=== PATIENT | male | born 1965 | race Caucasian/White ===

== ENCOUNTER 2016-10-22 17:21 | Emergency (ER) | payer BC ==
[2016-10-22 17:34] VITALS: BP 130/91
[2016-10-22] MEDS ORDERED: Lidocaine 1% with EPINEPHrine 1:100,000 20 ML MDV INJECT ONE (18:04)
[2016-10-22] MEDS ORDERED: Diphtheria,Pertussis(Acell),Tetanus Vaccine 0.5 ML SDV inactive IM ONE (18:04)
--- NOTE | 2016-10-22 18:09 | EDM.PDOC ---
ED HPI GENERAL MEDICAL PROBLEM - General Chief Complaint: Laceration Stated Complaint: NOSE LAC Time Seen by Provider: 10/22/16 17:55 Source of Information: Reports: Patient History Limitations: Reports: No Limitations - History of Present Illness INITIAL COMMENTS - FREE TEXT/NARRATIVE: The patient is a 51-year-old male who presents to the ED complaining of laceration to the bridge of his nose. 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 Patient was not knocked out but felt woozy afterwards. States it took approximately half hour to get his bearings back. Patient went back to work for the whole day. He had no issues. States his tetanus is not up-to-date. Denies any loss conscious, nausea/vomiting, dizziness, vision changes, shortness of breath, chest pain, numbness or tingling, or any additional complaints. PMH: anxiety and takes zoloft. 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 (see below) (none stated) Nose Pain Score (Numeric/FACES): 4 - Related Data Allergies Allergy/AdvReac Type Severity Reaction Status Date / Time No Known Allergies Allergy Verified 10/22/16 17:27 Home Meds: Home Meds Cephalexin [Keflex] 500 mg PO TID #21 capsule 10/22/16 [Rx] Sertraline HCl [Zoloft] 150 mg PO DAILY 10/22/16 [History] Past Medical History Psychiatric History: Reports: Anxiety Social & Family History - Tobacco Use Smoking Status *Q: Never Smoker - Recreational Drug Use Recreational Drug Use: No ED ROS GENERAL - Review of Systems Review Of Systems: ROS reveals no pertinent complaints other than HPI. ED EXAM, SKIN/RASH Exam: See Below Exam Limited By: No Limitations General Appearance: Alert, WD/WN, No Apparent Distress Eye Exam: Bilateral Eye: PERRL Ears: Hearing Grossly Normal Nose: Normal Inspection Throat/Mouth: Normal Voice, No Airway Compromise Head: Other (1.5 cm laceration to the bridge of the nose. minimal swelling. no bruising. minimal pain. no deviation of the nose noted. ) Neck: Normal Inspection, Supple, Non-Tender, Full Range of Motion Respiratory/Chest: No Respiratory Distress, No Accessory Muscle Use Cardiovascular: Normal Peripheral Pulses, Regular Rate, Rhythm, No JVD Peripheral Pulses: 2+: Radial (L) Neurological: Alert, Oriented, CN II-XII Intact, Normal Cognition, No Motor/ Sensory Deficits Psychiatric: Normal Affect, Normal Mood Skin: Warm, Dry, Normal Color ED SKIN PROCEDURES - Laceration/Wound Repair Nose Lac/wound length in cm: 1.5 Appearance: Subcutaneous Distal NVT: Neuro & Vascular Intact Anesthetic Type: Local Local Anesthesia - Lidocaine (Xylocaine): 1% With EPI Local Anesthetic Volume: 4cc Skin Prep: Saline, Sterile Drape Exploration/Debridement/Repair: Wound Explored, in a Bloodless Field, Explored to Base, No Foreign Material Found Suture Size: other (6.0) # of Sutures: 7 Suture Type: Prolene, Interrupted, Simple Drain Placement: No Sterile Dressing Applied: None Tetanus Status Addressed: Yes Complications: No Course - Vital Signs Last Recorded V/S: Last Vital Signs Temp 98.1 F 10/22/16 17:28 Pulse 64 10/22/16 17:28 Resp 16 10/22/16 17:28 BP 130/91 H 10/22/16 17:28 Pulse Ox 99 10/22/16 17:28 - Orders/Labs/Meds Orders: Active Orders 24 hr Category Date Time Status Vaccines to be Administered [RC] PER UNIT ROUTINE Care 10/22/16 18:04 Active Meds: Medications Discontinued Medications Generic Name Dose Route Start Last Admin Trade Name Kaleb PRN Reason Stop Dose Admin Diphtheria/Tetanus/Acell Pertussis 0.5 ml 10/22/16 18:04 10/22/16 18:11 Boostrix IM 10/22/16 18:05 0.5 ml .ONCE ONE Administration Lidocaine/Epinephrine 20 ml 10/22/16 18:04 10/22/16 18:14 Xylocaine 1% With Epinephrine 1:100,000 INJECT 10/22/16 18:05 20 ml ONETIME ONE Administration - Re-Assessments/Exams Free Text/Narrative Re-Assessment/Exam: 10/22/16 18:04patient is a 1.5 cm laceration to the bridge of his nose. patient states that 8:30 this morning a cow kicked a gait he was standing by giving him in the nose. Patient wasn't knocked out but notes that he became woozy and became mildly nauseated. Patient went back inside for a short period of time regained his parents and was able to work to rest the day. He's had no issues since. Due to the location of the laceration this require closure. Site will be cleanse and closed with 6.0 sutures. Will up date his tetanus as well. Laceration closed with no complications. Instructions as documented on discharge. Departure - Departure Time of Disposition: 18:50 Disposition: Home, Self-Care 01 Condition: good Clinical Impression: Laceration of nose Qualifiers: Encounter type: initial encounter Qualified Code(s): S01.21XA - Laceration without foreign body of nose, initial encounter - Discharge Information Prescriptions: Cephalexin [Keflex] 500 mg PO TID #21 capsule Instructions: Laceration Care, Adult, [id number] Referrals: Isis Acosta DO [Primary Care Provider] - Forms: ED Department Discharge Additional Instructions: Sutures should come out in 5 days. Cleanse site twice daily with soap and water , pat dry, reapply bacitracin ointment and dressing. Keep area clean. Due to delayed closure take the Keflex as prescribed. Followup with a provider at the [facility] for suture removal. Return to ED if you develop increased redness, swelling, or purulent drainage. - My Orders Last 24 Hours: My Active Orders 10/22/16 18:04 Vaccines to be Administered [RC] PER UNIT ROUTINE - Assessment/Plan Last 24 Hours: My Active Orders 10/22/16 18:04 Vaccines to be Administered [RC] PER UNIT ROUTINE
== END 2016-10-22 19:04 | disposition home or self-care (01) ==
LOC: JD.ED 17:21
DX: S01.21XA Laceration without foreign body of nose, initial encounter (principal); F41.9 Anxiety disorder, unspecified; Z23 Encounter for immunization; Z79.899 Other long term (current) drug therapy; W55.22XA Struck by cow, initial encounter
CPT/HCPCS: 12011; 90471; 90715; 99283-25